=== PATIENT | female | born 1985 | race Caucasian/White ===

== ENCOUNTER 2019-08-31 10:07 | Emergency (ER) | payer BC ==
[~2019-08-31] VITALS: Ht 162.6 cm; Wt 71.7 kg
[2019-08-31 10:13] VITALS: BP 142/91; Ht 162.6 cm; Wt 71.7 kg
== END 2019-08-31 12:15 | disposition home or self-care (01) ==
LOC: ED 10:07
DX: L03.011 Cellulitis of right finger (principal); Z98.890 Other specified postprocedural states
CPT/HCPCS: J1885

== ENCOUNTER 2020-06-16 08:33 | Emergency (ER) | payer BC ==
[~2020-06-16] VITALS: Ht 165.1 cm; Wt 73.1 kg
[2020-06-16 08:43] VITALS: Ht 165.1 cm; Wt 73.1 kg
[2020-06-16 11:01] VITALS: BP 135/92
== END 2020-06-16 10:55 | disposition home or self-care (01) ==
LOC: ED 08:33
DX: G43.909 Migraine, unspecified, not intractable, without status migrainosus (principal); Z98.890 Other specified postprocedural states; Z88.0 Allergy status to penicillin
CPT/HCPCS: J2765; J3010; J7030